=== PATIENT | female | born 2000 | race Caucasian/White ===

== ENCOUNTER 2018-11-14 07:58 | Emergency (ER) | payer BC, OTHER ==
[2018-11-14 08:09] VITALS: PULSE 78; TEMP 98.3; BMI 31.7
--- NOTE | 2018-11-14 08:30 | PDOC ---
*Physical Exam - Vital Signs Last Vital Signs Temp Pulse Resp BP Pulse Ox 98.3 F 78 18 131/80 99 11/14/18 08:06 11/14/18 08:06 11/14/18 08:06 11/14/18 08:06 11/14/18 08:06 - Physical Exam Comments: 11/14/18 08:30 The patient was examined by TARIQ Mckoy] under my direct supervision. I personally evaluated the patient. I concur with the above findings and the plan of care.
--- NOTE | 2018-11-14 08:53 | PDOC ---
History of Present Illness - General Chief Complaint: Rectal Bleed Stated Complaint: BLOOD IN STOOL Time Seen by Provider: 11/14/18 08:24 History Source: Patient Exam Limitations: No Limitations - History of Present Illness Initial Comments: 11/14/18 09:57 Patient is a 18-year-old female no significant past medical history who presents to the ER today for an episode of rectal bleeding. Patient states that while she was at school last night she was having a bowel movement and noticed bright red blood in the toilet. She also admits to some right flank pain and epigastric patient. She is not taking any medication for her pain. She notes that at work that many people have had the stomach virus. She admits to subjective fever, chills, nausea and diarrhea. Denies earache, sore throat, shortness of breath, difficulty breathing, chest pain, constipation, frequency, urgency and hematuria. Past History - Travel Traveled outside of the country in the last 30 days: No Close contact w/someone who was outside of country & ill: No - Past Medical History Allergies/Adverse Reactions: Allergies Allergy/AdvReac Type Severity Reaction Status Date / Time No Known Allergies Allergy Verified 11/14/18 08:06 Home Medications: Ambulatory Orders Ondansetron [Zofran Odt -] 4 mg SL TID #10 od.tablet 11/14/18 COPD: No Other medical history: PCOS - Suicide/Smoking/Psychosocial Hx Smoking History: Never smoked Have you smoked in the past 12 months: No Information on smoking cessation initiated: No Hx Alcohol Use: No Drug/Substance Use Hx: No Review of Systems - Review of Systems Able to Perform ROS?: Yes Comments:: 11/14/18 09:52 CONSTITUTIONAL: Absent: fever, chills, diaphoresis, generalized weakness, malaise, loss of appetite HEENT: Absent: rhinorrhea, nasal congestion, throat pain, throat swelling, difficulty swallowing, mouth swelling, ear pain, eye pain, visual Changes CARDIOVASCULAR: Absent: chest pain, loss of consciousness, palpitations, irregular heart rate, peripheral edema RESPIRATORY: Absent: cough, shortness of breath, dyspnea with exertion, orthopnea, wheezing, stridor, hemoptysis GASTROINTESTINAL: Present: blood in stool, nausea abdominal pain Absent: abdominal distension, vomiting, diarrhea, constipation, hematochezia GENITOURINARY: Present: R flank pain Absent: dysuria, frequency, urgency, hesitancy, hematuria , genital pain MUSCULOSKELETAL: Absent: myalgia, arthralgia, joint swelling SKIN: Absent: rash, itching, pallor HEMATOLOGIC/IMMUNOLOGIC: Absent: easy bleeding, easy bruising, lymphadenopathy, frequent infections ENDOCRINE: Absent: unexplained weight gain, unexplained weight loss, heat intolerance, cold intolerance NEUROLOGIC: Absent: headache, focal weakness or paresthesias, dizziness, unsteady gait, seizure, mental status changes, bladder or bowel incontinence PSYCHIATRIC: Absent: anxiety, depression, suicidal or homicidal ideation, hallucinations. Is the patient limited Icelandic proficient: No *Physical Exam - Vital Signs Last Vital Signs Temp Pulse Resp BP Pulse Ox 98.3 F 78 18 131/80 99 11/14/18 08:06 11/14/18 08:06 11/14/18 08:06 11/14/18 08:06 11/14/18 08:06 - Physical Exam Comments: 11/14/18 09:53 GENERAL: Well developed, well nourished. Awake and alert. No acute distress. HEENT: Normocephalic, atraumatic. PERRLA, EOMI. No conjunctival pallor. Sclera are non- icteric. Moist mucous membranes. Oropharynx is clear. NECK: Supple. Full ROM. No JVD. Carotid pulses 2+ and symmetric, without bruits. No thyromegaly. No lymphadenopathy. CARDIOVASCULAR: Regular rate and rhythm. No murmurs, rubs, or gallops. Distal pulses are 2+ and symmetric. PULMONARY: No evidence of respiratory distress. Lungs clear to auscultation bilaterally. No wheezing, rales or rhonchi. ABDOMINAL: TTP of epigastric region. (-) rovsing sign, obturator sign, psoas sign. Soft. Non-distended. No rebound or guarding. No organomegaly. Normoactive bowel sounds. RECTAL: External Hemorrhoid present at the 6'oclock positons. No obvious rectal bleeding at this time. No fissure noted. Internal exam with no obvious internal hemorrhoids felt. MUSCULOSKELETAL Normal range of motion at all joints. No bony deformities or tenderness. R sided CVA tenderness. EXTREMITIES: No cyanosis. No clubbing. No edema. No calf tenderness. SKIN: Warm and dry. Normal capillary refill. No rashes. No jaundice. NEUROLOGICAL: Alert, awake, appropriate. Cranial nerves 2-12 intact. No deficits to light touch and temperature in face, upper extremities and lower extremities. No motor deficits in the in face, upper extremities and lower extremities. Normoreflexic in the upper and lower extremities. Normal speech. Toes are down- going bilaterally. Gait is normal without ataxia. PSYCHIATRIC: Cooperative. Good eye contact. Appropriate mood and affect. Moderate Sedation - Procedure Monitoring Vital Signs: Procedure Monitoring Vital Signs Temperature 98.3 F 11/14/18 08:06 Pulse Rate 78 11/14/18 08:06 Respiratory Rate 18 11/14/18 08:06 Blood Pressure 131/80 11/14/18 08:06 O2 Sat by Pulse Oximetry (%) 99 11/14/18 08:06 ED Treatment Course - LABORATORY CBC & Chemistry Diagram: 11/14/18 12:14 11/14/18 09:15 Medical Decision Making - Medical Decision Making 11/14/18 11:18 Patient is a 18-year-old female no significant past medical history who presents to the ER today for an episode of rectal bleeding. On exam patient with epigastric tenderness on exam and R flank pain however - CVA tenderness. Pt states that she has been exposed to sick contacts at work, stomach flu. Rectal exam: external hemorrhoid at the 6 o'clock position Labs, urine, stool occult, zofran ordered 11/14/18 13:22 Repeat abdominal exam with no epigastric tenderness. Decreased R flank pain. No RLQ pain Labs without leukocytosis. Urine is clear without infection. Electrolytes grossly normal. Stool Occult negative I suspect that bleeding is from patient's hemorrhoid. GI follow up given Probable beginning of stomach flu as symptoms improved with zofran, also with reported diarrhea. Strict return precautions given R flank pain for appendicitis (low suspicion at this time). DC home at this time I discussed the physical exam findings, ancillary test results and final diagnoses with the patient. I answered all of the patient's questions. The patient was satisfied with the care received and felt comfortable with the discharge plan and treatment plan. The Patient agrees to follow up with the primary care physician/specialist within 24-72 hours. Return precautions were given. *DC/Admit/Observation/Transfer Diagnosis at time of Disposition: Hemorrhoid Qualifiers: Hemorrhoid type: unspecified Qualified Code(s): K64.9 - Unspecified hemorrhoids - Discharge Dispostion Disposition: HOME Condition at time of disposition: Stable Decision to Admit order: No - Prescriptions Prescriptions: Ondansetron [Zofran Odt -] 4 mg SL TID #10 od.tablet - Referrals Referrals: Jovani Perry MD [Staff Physician] - Padilla Giordano MD [Staff Physician] - - Patient Instructions Printed Discharge Instructions: DI for Hemorrhoids, DI for Rectal Bleeding Additional Instructions: You were evaluated for your rectal bleeding I suspect it was from a hemorrhoid. Your lab work and urine were normal today Given your sick contacts and abdominal tenderness, I also suspect you may be getting the stomach flu Take the Zofran every 8 hours as needed for nausea If you develop worsening abdominal pain in the next 24-48 hours please return to the ED for re-evaluation Follow up with your primary care doctor this week Return to the ED for any new or worsening symptoms/ - Post Discharge Activity Forms/Work/School Notes: Parent(s) Back to Work Note, Back to School
[2018-11-14 09:29] LABS: BASO % 1.1 % (0-2.0); EOS % 1.7 % (0-4.5); HEMATOCRIT 43.3 % (32.4-45.2); HEMOGLOBIN 14.9 GM/dL (10.7-15.3); LYMPH % 32.5 % (8-40); MCH 29.5 pg (25.7-33.7); MCHC 34.4 g/dl (32.0-36.0); MEAN CELL VOLUME 85.7 fl (80-96); MEAN PLT VOLUME 7.3 fl (7.5-11.1); MONO % 5.5 % (3.8-10.2); NEUT % 59.2 % (42.8-82.8); PLATELET COUNT 309 K/MM3 (134-434); RBC 5.06 M/mm3 (3.60-5.2); RDW 13.9 % (11.6-15.6); WHITE BLOOD COUNT 6.1 K/mm3 (4.0-10.0)
[2018-11-14 09:30] LABS: HCG,QUALITATIVE URINE Negative
[2018-11-14 09:34] LABS: URINE APPEARANCE CLEAR; URINE BILIRUBIN NEGATIVE (<2.0 mg/dL); URINE COLOR STRAW; URINE GLUCOSE (UA) NEGATIVE (NEGATIVE); URINE KETONE NEGATIVE (NEGATIVE); URINE LEUK ESTERASE NEGATIVE (NEGATIVE); URINE NITRITE NEGATIVE (NEGATIVE); URINE PROTEIN NEGATIVE (NEGATIVE); URINE UROBILINOGEN NEGATIVE mg/dL (0.2-1.0)
[2018-11-14 09:59] LABS: ALBUMIN 3.9 g/dl (3.4-5.0); ALK PHOS 96 U/L (45-117); ANION GAP 4 MMOL/L (8-16); BILIRUBIN,TOTAL 0.4 mg/dL (0.2-1); BLOOD UREA NITROGEN 17 mg/dL (7-18); CALCIUM 9.5 mg/dL (8.5-10.1); CHLORIDE 105 mmol/L (98-107); CO2 28 mmol/L (21-32); CREATININE 0.8 mg/dL (0.55-1.3); GLUCOSE,RANDOM 84 mg/dL (74-106); POTASSIUM 4.4 mmol/L (3.5-5.1); SGOT/AST 12 U/L (15-37); SGPT/ALT 23 U/L (13-61); SODIUM 137 mmol/L (136-145); TOT PROT 7.6 g/dl (6.4-8.2)
[2018-11-14 12:23] LABS: BASO % 0.9 % (0-2.0); EOS % 1.7 % (0-4.5); HEMATOCRIT 43.4 % (32.4-45.2); HEMOGLOBIN 14.7 GM/dL (10.7-15.3); LYMPH % 38.7 % (8-40); MCH 29.1 pg (25.7-33.7); MCHC 33.8 g/dl (32.0-36.0); MEAN CELL VOLUME 85.9 fl (80-96); MEAN PLT VOLUME 7.3 fl (7.5-11.1); MONO % 4.8 % (3.8-10.2); NEUT % 53.9 % (42.8-82.8); PLATELET COUNT 296 K/MM3 (134-434); RBC 5.05 M/mm3 (3.60-5.2); RDW 13.9 % (11.6-15.6); WHITE BLOOD COUNT 6.8 K/mm3 (4.0-10.0)
[2018-11-14 12:25] VITALS: BP 122/76
== END 2018-11-14 13:37 | disposition home or self-care (01) ==
LOC: JER 07:58
DX: K64.9 Unspecified hemorrhoids (principal)
CPT/HCPCS: 36415; 80053; 81003; 82272; 83690; 84703; 85025; 87086; 99283-25